=== PATIENT | female | born 1990 | race Caucasian/White ===

== ENCOUNTER 2020-08-04 18:13 | Emergency (ER) | payer OTHER, SELFPAY ==
--- NOTE | ~2020-08-04 | XR_ITS ---
EXAMINATION: XR chest 1V portable DATE: 08/04/2020 19:06 INDICATION: Chest pain TECHNIQUE: frontal view of the chest was obtained. COMPARISON: Chest radiograph dated 11/22/2009 FINDINGS: Subtle patchy airspace opacities in the left mid and bilateral lower lung zones concerning for pneumo neema. No pleural effusion or pneumothorax. The cardiomediastinal silhouette is normal. IMPRESSION: 1. Subtle bilateral airspace disease which is concerning for pneumonia with differential including at electasis. Reviewed, dictated and finalized at location A. IMPRESSION: 1. Subtle bilateral airspace disease which is concerning for pneumonia with dif ferential including atelectasis.
--- NOTE | ~2020-08-04 | CT_ITS ---
EXAMINATION: CTA chest PE protocol DATE: 08/04/2020 20:35 INDICATION: Chest pain. Elevated d-dimer. TECHNIQUE: Computed tomography (CT) pulmonary angiogram of the chest was performed with 100 mL Omnipa que-350 intravenous contrast. Additional 3D reconstructions utilizing coronal maximum intensity proje ction (MIP) were performed. Automated exposure control and iterative reconstruction technique were em ployed. The dose-length product was 1078.47 mGy-cm. COMPARISON: None FINDINGS: Good contrast opacification of the pulmonary arteries. There is mild streak artifact and quantum shen le resulting primarily from patient body habitus. Mild scattered respiratory motion artifact. Togethe r this decreases sensitivity in some of the smaller subsegmental pulmonary arteries. No evident pulmo nary embolism. There are scattered patchy groundglass opacities and small regions of consolidation th roughout both lungs most prominent in the left upper and lower lobes and also seen in portions of the remaining lobes. No septal line thickening to suggest pulmonary edema. No pleural effusion or pneumo thorax. Heart size is normal. No pericardial effusion. Mediastinal lymphadenopathy, the largest a 3.5 x 1.8 cm AP window lymph node. Mild bilateral hilar lymphadenopathy. Diffuse hepatic steatosis with focal sparing along the gallbladder fossa there is also nonspecific mild periportal lymphadenopathy. Mild thoracic spondylosis. IMPRESSION: 1. No evident pulmonary embolism. Sensitivity decreased in the smaller subsegmental pulmonary arterie s due to combination of suboptimal contrast opacification, streak artifact and quantum mottle due to patient body habitus and small amount of respiratory motion. Line 2. Bilateral multifocal pneumonia. 3. Likely reactive bilateral hilar, mediastinal and periportal lymphadenopathy. 4. Diffuse hepatic steatosis. Reviewed, dictated and finalized at location A. IMPRESSION: 1. No evident pulmonary embolism. Sensitivity decreased in the smaller subsegme ntal pulmonary arteries due to combination of suboptimal contrast opacification , streak artifact and quantum mottle due to patient body habitus and small amou nt of respiratory motion. Line 2. Bilateral multifocal pneumonia. 3. Likely reactive bilateral hilar, mediastinal and periportal lymphadenopathy. 4. Diffuse hepatic steatosis.
[2020-08-04 18:31] VITALS: BP 128/81; PULSE 78; RESP 22; TEMP 36.5; O2SAT 98
--- NOTE | 2020-08-04 18:31 | ECG_ITS ---
Measurements Intervals [place] Rate: 76 P: 56 CA: 161 QRS: 8 QRSD: 109 T: 11 QT: 407 QTc: 459 Interpretive Statements SINUS RHYTHM LOW QRS VOLTAGE IN PRECORDIAL LEADS BORDERLINE R WAVE PROGRESSION, ANTERIOR LEADS BASELINE ARTIFACT- III BORDERLINE ECG Electronically Signed On 08-06-2020 7:02:08 CDT by Jose David Johnson D.O.
[2020-08-04 18:35] VITALS: PULSE 76
[2020-08-04] MEDS: KETOROLAC 30 MG/ML VIAL (*BKC) IV PUSH (18:45)
[2020-08-04 18:46] LABS: Basophils Absolute Auto 0.05 K/mm3 (0.00-0.10); Basophils Percent Auto 0.5 % (0.0-1.0); Eosinophils Absolute Auto 0.46 K/mm3 (0.02-0.50); Eosinophils Percent Auto 4.7 % (1.0-6.0); Hematocrit 40.3 % (35.0-49.0); Immature Granulocyte Absolute 0.03 K/mm3 (0.00-0.00); Immature Granulocyte Percent A 0.3 % (0.0-0.0); Lymphocytes Absolute Auto 2.17 K/mm3 (1.10-4.50); Mean Corpuscular HGB Conc 32.3 g/dL (32.0-36.0); Mean Corpuscular Hemoglobin 30.3 pg (27.0-31.0); Mean Corpuscular Volume 93.9 fL (78.0-102.0); Mean Platelet Volume 10.2 fl (9.2-11.8); Monocytes Absolute Auto 0.77 K/mm3 (0.10-0.90); Monocytes Percent Auto 7.8 % (2.0-11.0); Neutrophils Absolute Auto 6.4 K/mm3 (1.7-7.2); Neutrophils Percent Auto 64.7 % (50.0-70.0); Platelet Count Result 332 K/mm3 (150-420); Red Blood Count 4.29 M/mm3 (4.20-5.40); Red Cell Distribution Width 14.4 % (11.6-14.4); White Blood Count 9.9 K/mm3 (4.8-10.8)
[2020-08-04 19:04] LABS: Alanine Aminotransferase 44 U/L (14-59); Albumin Level 3.3 g/dL (3.4-5.0); Alkaline Phosphatase 59 U/L (46-116); Anion Gap 8 mmol/L (8-16); Aspartate Amino Transferase 20 U/L (15-37); Bilirubin,Total 0.4 mg/dL (0.00-1.00); Blood Urea Nitrogen 9 mg/dL (7-18); Calcium 8.7 mg/dL (8.5-10.1); Carbon Dioxide 29 mmol/L (21-32); Chloride 102 mmol/L (98-108); Estimated CRCL calculation 164 ml/min; Estimated Glomerular Filt Rate > 60; Glucose 100 mg/dL (70-99); Osmolality Calculated 286 mOsm/kg (285-295); Potassium 3.6 mmol/L (3.5-5.1); Sodium 139 mmol/L (136-145)
[2020-08-04 19:05] LABS: D Dimer 0.56 mg/L (0.19-0.50); Troponin I < 0.02 ng/mL (0.00-0.056)
[2020-08-04 19:26] LABS: Pregnancy On Board Control POSITIVE; Urine Pregnancy Test Negative
--- NOTE | 2020-08-04 20:59 | ED.CHESTPAIN ---
HPI - Chest Pain General Chief Complaint: Chest Pain Stated Complaint: AMB Source: patient Mode of arrival: ambulatory Limitations: no limitations History of Present Illness HPI narrative: This is a 29-year-old female that presents via EMS to the emergency department with sharp atypical chest pain on left chest area currently no radiation currently that the pain is not associated with some nausea or vomiting currently no shortness of breath patient is afebrile and vital signs are stable with a blood pressure of 128/81. Patient has no significant history of heart disease, no heart disease in her family. MD complaint: chest pain Onset (ago): day(s) Timing of current episode: episodic Prior episodes: No Pain location: left chest Quality: sharp Relieving factors: nothing Exacerbating factors: inspiration Context: recent illness Related Data Home Medications Medication Instructions Recorded Confirmed hydrochlorothiazide 50 mg PO DAILY 08/04/20 08/04/20 labetalol 100 mg PO DAILY 08/04/20 08/04/20 pantoprazole 40 mg PO DAILY 08/04/20 08/04/20 Allergies Allergy/AdvReac Type Severity Reaction Status Date / Time No Known Allergies Allergy Mild Verified 11/22/09 16:02 Review of Systems Review of Systems: All systems reviewed & are unremarkable except as noted in HPI and below PMFSH Past Medical History Medical History HTN (hypertension) Exam Const: General: no acute distress Orientation/consciousness: patient oriented x3 HENMT: Head: normal to inspection Eyes: Conjunctivae: conjunctivae normal Pupils: Equal, round and reactive pupils present EOM: EOMs intact bilaterally Neck: Neck: normal visual inspection, no lymphadenopathy and no meningeal signs Chest: Chest palpation & inspection: normal inspection of the chest and abnormal inspection of the chest Resp: Effort & Inspection: normal respiratory effort Auscultation: clear to auscultation bilaterally Cardio: Rate: regular rate GI: Auscultation: normal bowel sounds : General: Yes no CVA tenderness Neuro: General: patient oriented x3 and moves all extremities Extrem: General: normal to inspection and no pedal edema Psych: Appearance: grossly normal Mental Status: mental status grossly normal Course Course Emergency Course: patient appears to to be comfortable, receive IM 1 g ceftriaxone. Her CURB-65 score is 0 which puts her at low risk. Advised patient to take medicine that sent to her pharmacy and follow-up with primary care physician within 1 week for further evaluation. Vital Signs Vital signs: Vital Signs Temperature 36.5 C 08/04/20 18:31 Pulse Rate 78 08/04/20 18:31 Respiratory Rate 22 H 08/04/20 18:31 Blood Pressure 128/81 08/04/20 18:31 Pulse Oximetry 98 08/04/20 18:31 Temperature 36.5 C 08/04/20 18:31 Pulse Rate 76 08/04/20 18:35 Respiratory Rate 22 H 08/04/20 18:31 Blood Pressure 128/81 08/04/20 18:31 Pulse Oximetry 98 08/04/20 18:31 MDM - Chest Pain Lab Data Result diagrams: 08/04/20 18:43 08/04/20 18:43 Labs: Lab Results 08/04/20 08/04/20 08/04/20 Range/Units 18:43 18:43 18:43 WBC 9.9 (4.8-10.8) K/mm3 RBC 4.29 (4.20-5.40) M/mm3 Hgb 13.0 (12.0-15.0) g/dL Hct 40.3 (35.0-49.0) % MCV 93.9 (78.0-102.0) fL MCH 30.3 (27.0-31.0) pg MCHC 32.3 (32.0-36.0) g/dL RDW 14.4 (11.6-14.4) % Plt Count 332 (150-420) K/mm3 MPV 10.2 (9.2-11.8) fl Immature Gran % (Auto) 0.3 H (0.0-0.0) % Neut % (Auto) 64.7 (50.0-70.0) % Lymph % (Auto) 22.0 (18.0-42.0) % [place] % (Auto) 7.8 (2.0-11.0) % Eos % (Auto) 4.7 (1.0-6.0) % Baso % (Auto) 0.5 (0.0-1.0) % Lymph # (Auto) 2.17 (1.10-4.50) K/mm3 [place] # (Auto) 0.77 (0.10-0.90) K/mm3 Eos # (Auto) 0.46 (0.02-0.50) K/mm3 Baso # (Auto) 0.05 (0.00-0.10) K/mm3 Abs Immat Gran (auto) 0.
[2020-08-04] MEDS: cefTRIAXone 1 GM VIAL IM (21:00)
[2020-08-04] MEDS: LIDOCAINE HCL 1% LOCAL INJ 20 ML VIAL (21:00)
[2020-08-04 21:33] VITALS: BP 142/70; RESP 15; O2SAT 99
== END 2020-08-04 21:33 | disposition home or self-care (01) ==
PROVIDERS: Emergency Provider Emergency Medicine; PCP Family Medicine
DX: J18.9 Pneumonia, unspecified organism (principal)
CPT/HCPCS: 36415; 71045; 71275; 80053; 81025; 84484; 85025; 85380; 93005; 96372; 96374; 99284; J0696; J1885; Q9965

== ENCOUNTER 2021-04-11 11:26 | Outpatient (CLI) | payer OTHER, SELFPAY ==
--- NOTE | ~2021-04-11 | XR_ITS ---
EXAMINATION: XR chest 2V DATE: 04/11/2021 11:59 INDICATION: Hypertension. Preop. TECHNIQUE: Frontal and lateral views of the chest were obtained on 3 radiographs. COMPARISON: Chest CT 08/04/2020 FINDINGS: The chest demonstrates clear lungs without pneumonia, pleural effusion, or pneumothorax. Th e heart size is normal. IMPRESSION: 1. No acute cardiopulmonary disease. Reviewed, dictated and finalized at location A.
[2021-04-11 11:52] LABS: Basophils Absolute Auto 0.05 K/mm3 (0.00-0.10); Basophils Percent Auto 0.7 % (0.0-1.0); Eosinophils Absolute Auto 0.45 K/mm3 (0.02-0.50); Eosinophils Percent Auto 6.2 % (1.0-6.0); Hematocrit 43.8 % (35.0-49.0); Hemoglobin 14.7 g/dL (12.0-15.0); Immature Granulocyte Absolute 0.02 K/mm3 (0.00-0.00); Immature Granulocyte Percent A 0.3 % (0.0-0.0); Lymphocytes Absolute Auto 1.48 K/mm3 (1.10-4.50); Lymphocytes Percent Auto 20.4 % (18.0-42.0); Mean Corpuscular HGB Conc 33.6 g/dL (32.0-36.0); Mean Corpuscular Hemoglobin 31.7 pg (27.0-31.0); Mean Corpuscular Volume 94.4 fL (78.0-102.0); Monocytes Absolute Auto 0.68 K/mm3 (0.10-0.90); Monocytes Percent Auto 9.4 % (2.0-11.0); Neutrophils Absolute Auto 4.6 K/mm3 (1.7-7.2); Platelet Count Result 260 K/mm3 (150-420); Red Blood Count 4.64 M/mm3 (4.20-5.40); Red Cell Distribution Width 14.5 % (11.6-14.4); White Blood Count 7.3 K/mm3 (4.8-10.8)
[2021-04-11 12:02] LABS: Hemoglobin A1C 6.5 % (<5.7)
[2021-04-11 13:05] LABS: Alanine Aminotransferase 83 U/L (14-59); Albumin Level 3.7 g/dL (3.4-5.0); Alkaline Phosphatase 53 U/L (46-116); Anion Gap 8 mmol/L (8-16); Aspartate Amino Transferase 44 U/L (15-37); Bilirubin,Total 0.7 mg/dL (0.00-1.00); Blood Urea Nitrogen 15 mg/dL (7-18); Calcium 9.1 mg/dL (8.5-10.1); Carbon Dioxide 30 mmol/L (21-32); Chloride 100 mmol/L (98-108); Cholesterol 155 mg/dL (0-200); Estimated Glomerular Filt Rate > 60; Ferritin 99 ng/mL (8-252); Folic Acid > 20.0 ng/mL (8.6->20); Glucose 114 mg/dL (70-99); HDL Direct 50 mg/dL (40-60); Iron 72 ug/dL (50-170); LDL Cholesterol Calculated 90 mg/dL (<130); Magnesium 1.6 mg/dL (1.8-2.4); Osmolality Calculated 287 mOsm/kg (285-295); Percent Iron Saturation 21 % (12-57); Potassium 4.1 mmol/L (3.5-5.1); Sodium 138 mmol/L (136-145); Thyroid Stimulating Hormone 1.41 uIU/mL (0.36-3.74); Total Protein 7.8 g/dL (6.4-8.2); Triglycerides 76 mg/dL (0-150); Vitamin B12 1027 pg/mL (193-986)
[2021-04-11 13:34] LABS: Partial Thromboplastin Time 28.8 SEC (23.90-30.70); Prothrombin Time 11.1 Seconds (9.50-12.10)
[2021-04-16 10:39] LABS: Vitamin B1 8 nmol/L (8-30)
[2021-04-16 11:46] LABS: Parathyroid Intact 30 pg/mL (14-64)
[2021-04-16 14:09] LABS: Vitamin D 25 Hydroxy 35 ng/mL (30-100)
== END 2021-04-11 11:27 | disposition home or self-care (01) ==
PROVIDERS: PCP Family Medicine
DX: E66.01 Morbid (severe) obesity due to excess calories (principal); Z01.818 Encounter for other preprocedural examination
CPT/HCPCS: 36415; 71046; 80053; 80061; 82306; 82607; 82728; 82746; 83036; 83540; 83550; 83735; 83970; 84425; 84443; 85025; 85610; 85730

== ENCOUNTER 2021-12-03 08:51 | Outpatient (CLI) | payer OTHER, SELFPAY ==
--- NOTE | 2021-12-09 08:41 | WPDPFTINT ---
PFT Procedure Performed PFT Procedure Performed Spirometry with Pre/Post Bronchodilator Plethysmography (Lung Vol) Diffusing Cap (DLCO) Flow Vol Loop PFT Interpretation DOS: 12/03/2021 REQUESTING: Alan Bianchi PA-C REASON FOR TESTING: Dyspnea on exertion PULMONARY FUNCTION TESTS Results are reliable and reproducible. Spirometry: Pre bronchodilator FEV1 is 85% predicted, 2.56 L, normal. FVC is 82% predicted, normal. FEV1 / FVC is 101% predicted indicating no airflow obstruction. There is no significant change after bronchodilator administration. This is a normal spirometry. Lung volumes: The total lung capacity is 75% predicted which is consistent with mild restriction. Vital capacity is 82% predicted, normal. Residual volume is 61% predicted. RV/TLC is not elevated. There is no air trapping. Airway resistance is normal. Diffusion: DLCO is 69% predicted, mildly reduced. Flow volume loop: Normal. IMPRESSION: This study shows normal spirometry, mild restriction which may be related to body mass index 56, and a mild decrease in diffusion. Diffusion is increased in obesity so this mild decrease is not expected. Isolated decreased in diffusion can be seen in anemia, early interstitial lung disease, pulmonary vascular disease associated with autoimmune conditions, and other etiologies. Clinical correlation is recommended. Martina Chang MD
--- NOTE | 2021-12-09 09:19 | WPDMETH ---
Methacholine Procedure Perform Procedure Performed Methacholine Challenge Methacholine Challenge Methacholine Challenge:
--- NOTE | 2021-12-09 09:22 | WPDMETH ---
Methacholine Procedure Perform Procedure Performed Methacholine Challenge Methacholine Challenge Methacholine Challenge: DOS: 12/03/2021 REQUESTING: Alan Bianchi PA-C REASON FOR TESTING: Dyspnea on exertion METHACHOLINE CHALLENGE This test was conducted per ATS guidelines. A full pulmonary function was performed prior to this study Dec 03, 2021 and this showed showed normal spirometry. The patient was exposed to sequentially increasing doses of methacholine in the usual manner. Baseline - saline Level 1 - 0.025 mg Level 2 - 0.25 mg Level 3 - 1 mg Level 4 - 4 mg Level 5 - 16 mg The test was stopped after the fifth and final dose of 16 mg with a 26% in the FEV1. This is a positive result. Flows returned to normal after bronchodilator was administered. IMPRESSION: This is a positive methacholine challenge with the PD20 16 mg on the 5th level. The best use for a methacholine challenge is to rule out asthma. Clinical correlation is advised. Martina Chang MD
== END 2021-12-03 08:52 | disposition home or self-care (01) ==
LOC: CHSCARD 08:56
PROVIDERS: PCP Family Medicine; Visit Provider Physician Assistant
DX: R06.02 Shortness of breath (principal)
CPT/HCPCS: J7674

== ENCOUNTER 2023-12-29 10:56 | Outpatient (RCR) | payer OTHER, SELFPAY ==
--- NOTE | 2023-12-30 08:33 | BUOTOPEVAL ---
Assessment and note entered by Britt Anderson, OT Evaluation Information Assessment Status Evaluation Diagnosis De Quervain's tenosynovitis, left Onset 07/27/2023 Subjective Information The patient reports she was lifting a box at work and felt a pop and was having really bad pain. She then had surgery last month and now reports 4/10 pain when moving wrist, 6/10 pain at its worst and 0/10 at its best with pain located at base of left thumb. She reports burning sensation distal to incision and feels needles at lateral side of thumb. The patient reports having a difficult time opening jars and bottles, caring for her children, and performing grooming/self feeding to cut food and wash back. Reported Pain Level Pain Score 4: Self Report Assessment OT Clinical Summary The patient is a 33 year old female who was referred to outpatient OT due to surgery for De Quervain's tenosynovitis of L UE. The patient's PMH includes but is not limited to asthma, HTN. 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 The patient requires skilled OT to address these deficits and return to PLOF. Plan of Care Interventions Therapeutic Exercise,Manual Therapy,Neuro Re- education,Therapeutic Activities,Hot Pack/Cold Pack,Electrical Stimulation,Sensory Integrative Techn,Self-Care/Home Management,Ultrasound OT Services Indicated Yes Treatment Frequency and 2x/week for 9 visits. Duration These treatments will address the objective and functional deficits as defined above. The patient will be advanced safely and appropriately in order for the patient to progress towards his/her prior level of function. Additional exercises will be introduced and as well as a comprehensive home exercise program upon discharge, if needed, ?to ensure carryover of functional gains achieved in the clinic. This treatment plan has been reviewed and agreement upon by the patient.
--- NOTE | 2024-02-17 17:12 | BUOTOPEVAL ---
Assessment and note entered by Britt Anderson, OT Evaluation Information Assessment Status Progress Diagnosis De Quervain's tenosynovitis, left Onset 07/27/2023 Subjective Information The patient reports that her biggest issue with wrist is lifting weight and is unable to picker packer her daughter or a gallon of milk. The patient reports that she has a hard time completing daily tasks and does not think she can perform work tasks at this time due to pain. The patient reports that she constantly has pain during any lifting activities even after surgery. Reported Pain Level Pain Score 2: Self Report Pain Score 4: Self Report Pain Score 4: Self Report Pain Score 4: Self Report Pain Score 4: Self Report Pain Score 5: Self Report Pain Score 7: Self Report Pain Score 6: Self Report Pain Score 5: Self Report Pain Score 4: Self Report Additional Pain Score Comments Pain increased to 6/10 with participation in wrist maze. Pain decreases to 3/10 following MHP and STM. Assessment OT Clinical Summary The patient demonstrates minimal progress in goals at this time due to continued pain in affected UE . The patient's pain fluctuates around 2-5/10 pain with pain during daily activities. The patient to continue to address deficits at this time of grip wrapper , wrist mobility and strength, and pain with minimal use of modalities available per mechanical adjuster, therapist to use only approved modalities of massage and heat/ice. Plan of Care Interventions Therapeutic Exercise,Hot Pack/Cold Pack OT Services Indicated Yes Treatment Frequency and 2x/week for 10 visits Duration These treatments will address the objective and functional deficits as defined above. The patient will be advanced safely and appropriately in order for the patient to progress towards his/her prior level of function. Additional exercises will be introduced and as well as a comprehensive home exercise program upon discharge, if needed, ?to ensure carryover of functional gains achieved in the clinic. This treatment plan has been reviewed and agreement upon by the patient.
== END 2024-03-03 20:00 | disposition home or self-care (01) ==
LOC: CHSOT 10:56
DX: M65.4 Radial styloid tenosynovitis [de Quervain] (principal)
CPT/HCPCS: 97110; 97140; 97165; 97530

== ENCOUNTER 2024-05-03 05:54 | Emergency (ER) | payer OTHER, SELFPAY ==
[2024-05-03 05:57] VITALS: BP 153/101; PULSE 100; RESP 20; TEMP 36.2; O2SAT 97
--- NOTE | 2024-05-03 06:06 | ED.FEVER ---
HPI - Fever General Chief Complaint: Unspecified Stated Complaint: upper respiratory Time Seen by Provider: 05/03/24 06:00 Source: patient Mode of arrival: ambulatory Limitations: no limitations History of Present Illness HPI Narrative: This is 33-year-old female presents with a 2 day history of sore throat headache with fever up to 100.5 took Tylenol earlier today, symptoms started 2 days ago with sore throat and headache with no shortness of breath no cough or congestion no abdominal pain no chest pain. MD elicited complaint: fever Onset (ago): day(s) Related Data Home Medications Medication Instructions Recorded Confirmed hydrochlorothiazide 50 mg tablet 50 mg PO DAILY 08/04/20 08/04/20 labetalol 100 mg tablet 100 mg PO DAILY 08/04/20 08/04/20 pantoprazole 40 mg tablet,delayed 40 mg PO DAILY 08/04/20 08/04/20 release budesonide-formoterol HFA 80 2 puff inhalation BID 05/03/24 05/03/24 mcg-4.5 mcg/actuation aerosol inhaler (Symbicort) lisinopril 10 mg tablet 10 mg PO DAILY 05/03/24 05/03/24 norethindrone acetate 1 mg-ethinyl 1 tablet PO DAILY 05/03/24 05/03/24 estradiol 20 mcg tablet (Junel) sumatriptan succinate 100 mg tablet 100 mg PO PRN 05/03/24 05/03/24 venlafaxine 150 mg 150 mg PO DAILY 05/03/24 05/03/24 capsule,extended release 24 hr Allergies Allergy/AdvReac Type Severity Reaction Status Date / Time No Known Allergies Allergy Mild Verified 05/03/24 06:54 Review of Systems Review of Systems: All systems reviewed & are unremarkable except as noted in HPI and below PMFSH Past Medical History Medical History (Updated 05/03/24 @ 06:57 by Zackary Rodriguez MD) HTN (hypertension) Exam Const: General: healthy appearing Nutritional Appearance: well nourished Orientation/consciousness: patient oriented x3 Limitations: no limitations HENMT: Head: normal to inspection Mouth: Yes Abnormal oral and palatal mucosa present Eyes: Conjunctivae: conjunctivae normal Neck: Neck: lymphadenopathy Chest: Chest palpation & inspection: normal inspection of the chest Resp: Effort & Inspection: normal respiratory effort Auscultation: clear to auscultation bilaterally Cardio: Rate: regular rate Rhythm: regular rhythm GI: Auscultation: normal bowel sounds 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 Patient received dose of 800mg PO Motrin. Vital Signs Vital signs: Vital Signs Temperature 36.2 C L 05/03/24 05:57 Pulse Rate 100 05/03/24 05:57 Respiratory Rate 20 05/03/24 05:57 Blood Pressure 153/101 H 05/03/24 05:57 Pulse Oximetry 97 05/03/24 05:57 Oxygen Delivery Room Air 05/03/24 05:57 Temperature 36.2 C L 05/03/24 05:57 Pulse Rate 100 05/03/24 05:57 Respiratory Rate 20 05/03/24 05:57 Blood Pressure 153/101 H 05/03/24 05:57 Pulse Oximetry 97 05/03/24 05:57 Oxygen Delivery Room Air 05/03/24 05:57 Critical Care Time Critical Care Time Critical Care Time: No Discharge Plan Discharge Clinical Impression: Streptococcal sore throat Patient Disposition: Home, Self-Care Condition: Stable Instructions: Antibiotic Form Additional Instructions: take medication as prescribed can use Tylenol or Motrin and follow up with primary within a week for further evaluation. Prescriptions: New amoxicillin-pot clavulanate [Augmentin] 500-125 mg tablet 1 tablet PO TID Qty: 30 0RF No Action hydrochlorothiazide 50 mg tablet 50 mg PO DAILY pantoprazole 40 mg tablet,delayed release (DR/EC) 40 mg PO DAILY labetalol 100 mg tablet 100 mg PO DAILY doxycycline hyclate 100 mg tablet 100 mg PO BID Qty: 20 0RF Follow-up/Referrals: UNKNOWN,DOCTOR [Primary Care Provider] - Time of Disposition: 06:58
[2024-05-03] MEDS: IBUPROFEN 400 MG TABLET 800 MG PO (06:34)
[2024-05-03 06:38] LABS: Strep Group A RT-PCR DETECTED (Negative)
[2024-05-03 06:52] LABS: SARS-CoV-2 RNA PCR Negative (Negative)
[2024-05-03 06:53] LABS: Influenza A QL RT-PCR Negative (Negative); Influenza B QL RT-PCR Negative (Negative); RSV RNA, RT-PCR Negative (Negative)
== END 2024-05-03 07:08 | disposition home or self-care (01) ==
PROVIDERS: Emergency Provider Emergency Medicine
DX: J02.0 Streptococcal pharyngitis (principal); I10 Essential (primary) hypertension; Z79.899 Other long term (current) drug therapy; Z20.822 Contact with and (suspected) exposure to COVID-19
CPT/HCPCS: 87637; 87651; 99283; A9270

== ENCOUNTER 2025-04-13 15:45 | Emergency (ER) | payer OTHER, SELFPAY ==
[2025-04-13] VITALS (7 sets, daily range): BP systolic 109–141; BP diastolic 66–97; PULSE 75–95; RESP 17–20; TEMP 37.4; O2SAT 97–99
--- NOTE | ~2025-04-13 | CT_ITS ---
CT abdomen pelvis w con Ordering provider: Zackary Rodriguez MD History: 34 years Female with . abdominal pain localizing to the right lower quad . Comparison: None. Technique: CT abdomen and pelvis with IV and without oral contrast. Automated exposure control and it erative reconstruction technique were employed. The dose-length product was 1714.10 mGy-cm. 100 ML 35 0 was given IV. Findings: VISUALIZED LOWER CHEST: 9 mm nodule is seen in the right lower lobe laterally. [address] follow-up advised. Soft tissue density is also seen in the left lung base laterally which may be focal atelecta sis versus pneumonia. Nodule is not excluded although this likely an measures 1.2 cm. UPPER ABDOMINAL ORGANS: Liver: Fat infiltration of the liver. Hepatomegaly. Vincent hepatis enlarged lymph nodes are also noted . Gallbladder: Distended with no definite stones. Spleen: Slight splenomegaly. Stomach/duodenum: Normal. Pancreas: Normal. Adrenals: Normal. Kidneys: Normal. PELVIC ORGANS: The bladder is underfilled. BOWEL AND MESENTERY: Colon: No evidence of diverticulitis. Normal appendix. Small Bowel: Normal. No obstruction. Peritoneum/mesentery: No free air or free fluid. Mesenteric lymph nodes are noted with the largest me asures 1.3 cm.. RETROPERITONEUM: Normal aorta. No retroperitoneal lymphadenopathy. Paraortic lymph nodes are seen w ith the largest measuring 2.8, 1.1 and 1.2 cm. MUSCULOSKELETAL: Superficial soft tissues: The superficial soft tissues are normal. Bones: Age appropriate degenerative changes of the spine. IMPRESSION: 1. Hepatosplenomegaly. 2. No evidence of appendicitis, diverticulitis or intestinal obstruction. 3. Nodules in the lung bases. 3 months follow-up CT is advised. 4. Distended gallbladder with no definite stones. Ultrasound evaluation advised. 5. Polyarticular lymphadenopathy. Mesenteric lymphadenopathy. 6. Fat infiltration of the liver. Enlarged vincent hepatis lymph nodes. Reviewed, dictated and finalized at location A. IMPRESSION: 1. Hepatosplenomegaly. 2. No evidence of appendicitis, diverticulitis or intestinal obstruction. 3. Nodules in the lung bases. 3 months follow-up CT is advised. 4. Distended gallbladder with no definite stones. Ultrasound evaluation advise d. 5. Polyarticular lymphadenopathy. Mesenteric lymphadenopathy. 6. Fat infiltration of the liver. Enlarged vincent hepatis lymph nodes.
--- NOTE | 2025-04-13 15:51 | ECG_ITS ---
Test Date: 2025-04-13 16:07:57 Measurements Intervals [place] Rate: 79 P: 41 MS: 160 QRS: 14 QRSD: 105 T: 30 QT: 396 QTc: 455 Interpretive Statements SINUS RHYTHM INCOMPLETE RIGHT BUNDLE BRANCH BLOCK LOW QRS VOLTAGE IN PRECORDIAL LEADS CONSIDER INFERIOR INFARCT, AGE INDETERMINATE BASELINE ARTIFACT- I, II, III, AVR, AVL, AVF ABNORMAL ECG No previous ECG available for comparison Electronically Signed On 04-13-2025 16:29:56 CDT by Jose David Johnson D.O.
--- OUTSIDE RECORDS SUMMARY | 2025-04-13 16:01 | XMS_ITS | Data Portability ---
Author Organization [facility], [address] [facility] ([place]) Address [address] [place] [address] Care Team Providers Care Writer Name Role Phone NENA ALLEN Primary Care Provider [phone] NENA ALLEN Referring Provider [phone] SATINDER EASLEY Pc Maintenance Technician Unavailable Assessment Encounter Date Assessment Date Assessment LastModified by Organization Details LastModified Time 03/03/2024 03/03/2024 The patient is having persistent pain in her left wrist area in the region of the release for de Quervain's tenosynovitis. She is 4 months after her surgical procedure and is still having pain in this area despite the therapy she has received. She should remain off work. She is going to have an MRI of her left wrist. She will be seen back after it is completed. Further treatment recommendations will be made at that time. mgreatting Not available 03/09/2024 06:19:31 04/13/2024 04/13/2024 The patient is having persistent left wrist pain after release of the left wrist 1st dorsal compartment for de Quervain's tenosynovitis. I discussed with her that on my review of the MRI images there did appear to be persistent tenosynovitis around the tendons to the thumb. The 1st dorsal compartment did appear to be completely released. I did not have the final MRI report available at the time of her office visit. She will be contacted with further treatment recommendations once the MRI report is available and reviewed. james [email or web address] Not available 04/17/2024 15:02:58 Plan of Treatment Reminders Order Date Submit Date Provider Last Modified By Organization Details Last Modified Time Details Appointments None record ed. Lab None record ed. Referral None record ed. Procedures None record ed. Surgeries None record ed. Imaging None record ed. Medication Orders None record ed. Patient TargetsNo targets recorded. Patient InstructionsNo instructions recorded. Reason for Referral None Reported. Results Created Date Observation Date Name Description Value Unit Range Abnormal Flag Note LastModifiedBy Organization Detail LastModifiedTime 04/14/20 24 04/13/2024 MRI, wrist , w/o contr ast [address] [address] Teleph one Name: Aura Briceno [id number] am Date: 2023 Age: 33Phys ician: Marycarmen boyce MD, Venkata : 1989Ex aminat ion: MRI WRIST WO CONTRA ST LEFT EXAM: MRI left wrist HISTOR Y: Persis tent pain in the left wrist, 4 months status post releas e for de Querva in's tenosy noviti s. Patien t report s a palpab le knot in the area of previo us surger y. COMPAR TRAVIS: Left wrist radiog raphs 023, MRI 2022 FINDIN GS: Mild thicke lito and edema of the thumb extens or tendon s on axial series 6 image 10, with surrou nding tenosy noviti s. No tear of the tendon s. These findin gs can also be seen on axial T1 series 5 image 9. Thin curvil inear overly ing scarri ng on the same axial T1 image, but withou t any measur able fibrot ic mass, or postop erativ e fluid collec tion in this region . There is mild tenosy noviti s of the extens or carpi radial is tendon s on axial series 6 image 10. The extens or digito rum tendon s at the dorsal wrist on axial series 6 image 10 appear to be constr icted by the extens or retina culum, but withou t associ ated tenosy noviti s or tendin opathy otherw ise. The extens or carpi ulnari s tendon is normal . Somewh at enlarg ed appear ance of the median nerve within the carpal tunnel on axial series 6 image 16 with an increa sed fascic ular patter n, nonspe cific, but can be seen in patien ts with carpal tunnel sympto ms. The flexor tendon s are normal . No fractu re, contus ion, or signif icant arthri tic change s. The cartil age is preser oni. The scapho lunate and lunotr iquetr al ligame nts are intact . The TFCC is intact . Small gangli on cyst along the radial wrist measur ing 4 mm on axial series 6 image 15 and mclean l series 11 image 9, just deep to the radial artery and vein. IMPRES LUIS: 1. Eviden ce for ongoin g de Querva in's tenosy noviti s of the thumb extens ors. Thin overly ing curvil inear scarri ng from the previo us surger y, but withou t any nodula r fibrot ic mass, or overly ing fluid collec tion in this region . 2. Mild tenosy noviti s of the extens or carpi radial is tendon s. 3. The extens or digito rum tendon s appear to be constr icted by the overly ing extens or retina culum at the dorsal wrist, but withou t any associ ated tendin opathy /tenos ynovit is. 4. Somewh at enlarg ed appear ance of the median nerve within the carpal tunnel , with an increa sed fascic ular patter n, a findin g which can be seen in patien ts with carpal tunnel sympto ms occasi onally . 5. Small 4 mm gangli on cyst at the radial wrist, just deep to the radial artery and vein. Electr onical ly signed in [place] cribe by: MAR RUIZ on:04/02 10:16 AM cc: Page PAGE 1 of NUMPAG ES 1 mgreatting Sc Only - [facility] Radiology [address] [place], [address], 04/14/2024 17:42:59 Result Notes None recorded. Problems Name Problem SNOMED Code Status Onset Date Resolution Date Notes Provider Name and Address Organization Details Recorded Time Pain of left wrist [id number] 02 Active 2023 [place], [place] - [facility] 4 16:47:30 Tenosynovit is of left radial styloid 6944713318739 9104 Active 2023 Venkata Quiñones MD [address] [place] [address], [phone], [facility] 4 06:19:40 Problem Notes None recorded. Procedures Surgical History Date Name Laterality Status Provider Name and Address Organization Details Recorded Time delivery completed Not Available Health Note 02/17/2024 12:22:30 Colonoscopy with biopsy completed Not Available Health Note 02/17/2024 12:22:30 Imaging Results None recorded. Procedure Notes None recorded. Medical Equipment None Reported. Medications Name Sig Start Date Stop Date Status Note LastModified by Organization Details LastModified Time cetirizine 10 mg tablet TAKE 1 TABLET BY MOUTH EVERY DAY active Not Available Not Available No t Available azithromycin 250 mg tablet TAKE 2 TABLETS BY MOUTH TODAY, THEN TAKE 1 TABLET DAILY FOR 4 DAYS DIRECTED active Not Available Not Available No t Available ibuprofen 800 mg tablet TAKE 1 TABLET BY MOUTH 3 TIMES DAILY NEEDED FOR PAIN. active Not Available Not Available No t Available sumatriptan 100 mg tablet TAKE 1 (ONE) TABLET AT HEADACHE ONSET, MAY REPEAT IN ONE HOUR ONCE active Not Available Not Available No t Available hydrocodone 5 mg-acetamino phen 325 mg tablet TAKE 1/2-1 TABLET BY MOUTH TWICE A DAY NEEDED FOR SEVERE PAIN TAKE W/ 1 IBUPROFEN active Not Available Not Available No t Available prednisone 20 mg tablet TAKE 1 TABLET BY MOUTH EVERY DAY active Not Available Not Available No t Available venlafaxine ER 150 mg capsule,exte nded release 24 hr TAKE 1 CAPSULE BY MOUTH EVERY DAY active Not Available Not Available No t Available topiramate 25 mg tablet TAKE 1 (ONE) TABLET AT BEDTIME X 2 WEEKS, THEN 2 TABS AT BEDTIME active Not Available Not Available No t Available omeprazole 40 mg capsule,erick yed release TAKE 1 CAPSULE BY MOUTH TWICE A DAY active Not Available Not Available No t Available tramadol 50 mg tablet TAKE 1 TABLET BY MOUTH 3 TIMES A DAY NEEDED FOR SEVERE PAIN (INS MAX 5 DAYS PER FILL) active Not Available Not Available No t Available hydrocodone 7.5 mg-acetamino phen 325 mg tablet TAKE 1/2-1 TABLET BY MOUTH TWICE A DAY NEEDED FOR PAIN (TAKE WITH 1 IBUPROFEN TAB) active Not Available Not Available No t Available fluoxetine 20 mg tablet TAKE 2 TABLETS BY MOUTH EVERY DAY active Not Available Not Available No t Available lisinopril 10 mg tablet TAKE 1 TABLET BY MOUTH EVERY DAY active Not Available Not Available No t Available Advair Diskus 500 mcg-50 mcg/dose powder for inhalation TAKE 1 PUFF BY MOUTH TWICE A DAY active Not Available Not Available Not Available docusate sodium 100 mg capsule TAKE 1 CAPSULE TWICE DAILY NEEDED FOR CONSTIPATIO N active Not Available Not Available No t Available hydrochlorot hiazide 25 mg tablet TAKE 1 (ONE) TABLET DAILY IN THE AM active Not Available Not Available No t Available albuterol sulfate HFA 90 mcg/actuatio n aerosol inhaler INHALE 2 (TWO) PUFF EVERY FOUR HOURS NEEDED FOR COUGH OR WHEEZE active Not Available Not Available No t Available amoxicillin 500 mg-potassium clavulanate 125 mg tablet active Not Available Not Available Not Available 11/21 (21) 1 mg-20 mcg tablet TAKE 1 TABLET BY MOUTH EVERY DAY active Not Available Not Available No t Available Symbicort 80 mcg-4.5 mcg/actuatio n HFA aerosol inhaler INHALE 2 PUFFS BY MOUTH TWICE A DAY active Not Available Not Available No t Available Vitamins Plus Low Iron 27 mg iron-1 mg tablet TAKE 1 TABLET BY MOUTH EVERY DAY active Not Available Not Available No t Available Trulicity 0.75 mg/0.5 mL subcutaneous pen injector USE 1 (ONE) INJECTION UNDER SKIN WEEKLY active Not Available Not Available No t Available Rybelsus 3 mg tablet TAKE 1 TABLET BY MOUTH EVERY DAY active Not Available Not Available No t Available Vitals None Recorded Social History Question Answer Notes LastModified by Organizat ion Details LastModified Time Do You Have An Advance Directive? No [email or web address] Information not available 06/09/2024 What Is Your Level Of Caffeine Consumption? Occasional [email or web address] Information not available 06/09/2024 How Many Times Per Week Do You Exercise? 1-2 Times Per Week [email or web address] Information not available 06/09/2024 Do You Have A Medical Power Of Middle School Music Teacher? No [email or web address] Information not available 06/09/2024 What Was The Date Of Your Most Recent Tobacco Screening? 06/15/2024 [email or web address] Information not available 06/09/2024 What Is Your Relationship Status? [email or web address] Information not available 06/09/2024 Sex: Unknown Functional Status Question Answer Note LastModified by Organizat ion Details LastModified Time Do you use any illicit or recreational drugs? No [email or web address] Information not available 06/09/2024 What is your level of alcohol consumption? None [email or web address] Information not available 06/09/2024 Are you currently employed? 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 Moderate [email or web address] Information not available 06/09/2024 Mental Status None recorded. Family History Relationship Description Onset Age of this Age Resolved Age Notes LastModified by Organization Details LastModified Time Paternal Grandmother Arthritis [email or web address] Not available 01/31 12:22:29 Paternal Grandmother Diabetes mellitus [email or web address] Not available 2023 12:22:29 Paternal Grandmother Kidney disease [email or web address] Not available 2023 12:22:29 Father Family history of malignant neoplasm [email or web address] Not available 2023 12:22:29 Father Hypertensive disorder [email or web address] Not available 2023 02:44:15 Maternal Grandmother Family history of malignant neoplasm [email or web address] Not available 2023 12:22:29 Maternal Grandfather Hypertensive disorder [email or web address] Not available 2023 12:22:29 Medical History Condition Response Diabetes N Anxiety Disorder N Bleeding Disorder N Attention-deficit Hyperactivity Disorder N High Blood Pressure Y Arthritis N Hyperlipidemia N Cancer N Stroke N Thyroid Problems N Asthma Y Depression N COPD N Anemia N Seizures N Heart Disease N Fibromyalgia N Osteoporosis N Kidney Disease N Gynecological HistoryNo gynecological history recorded. Obstetrics History GPAL:G 0 P 0 0 0 0 Past Encounters Encounter ID Performer Location Encounter Start Date Encounter Closed Date Diagnosis/Indication Diagnosis SNOMED-CT Code Diagnosis ICD10 Code Diagnosis Note [id number] Venkata Quiñones MD [address] [facility] ([place]) [address] [place] [phone] 03/03/2024 15:49:43 03/03/2024 18:24:47 Tenosynovitis of left radial styloid [id number] M65.4 [id number] Venkata Quiñones MD [address] [facility] ([place]) [address] [place] [phone] 04/13/2024 16:37:33 04/13/2024 18:29:20 Health Concerns Section Related Observation LastModified by Organization Detai ls LastModified Time None Recorded Concern Status LastModified by Organization Details LastModified Time None Recorded Advance Directives Directive N: Payers Insurance Date Sequence Insurance Name Policy Number Policy Guerra Covered Member ID Guerra Member ID Guarantor Name 03/03/2024 [employer] Claire Briceno 06/20/2024 1 [employer] (HMO) Aura Littlejohn Janak [id number] Aura Littlejohn Tucker 03/23/2024 [employer] Claire Briceno 06/20/2024 [employer] [place] - [place] ON OR AFTER 2020 (MEDICAID REPLACEMENT - HMO) Aura Littlejohn Janak [id number] Aura Briceno 06/20/2024 1 [employer] (MEDICAID REPLACEMENT - HMO) Aura Littlejohn Tucker [id number] Aura Briceno Notes Date Note Type Note Provider Name and Address Organization Details Recorded Time 4 text/html Aura Clark a 33 year oldfemalepresenting for care. The patient returns for follow-up after release left wrist de Quervain's tenosynovitis about 4 months ago. She has received some therapy. She feels she is still having some pain in the area and still has weakness which has not improved a lot with the therapy. She states that her and the therapist both feel that there is a knot in the area of the incision. She has no complaints of numbness and tingling in the left hand. She does not feel she could return to her normal work activities. Venkata Quiñones MD [address] [place] [address], [phone], [facility] 03/09/2024 06:20:00 4 text/html Deepika is seen for follow-up concerning her left wrist. She had previous surgery to the left wrist de Quervain's tenosynovitis. She is having persistent pain on the radial side of her left wrist. She has had no new injury nor trauma. Her symptoms have not really improved significantly with time, as well as with therapy. She has no complaints of numbness and tingling in the left hand. She had an MRI of her left wrist, and she is here today to review the results of that. Venkata Quiñones MD [address] [facility], [place], [phone], [facility] 04/20/2024 05:59:04 OBGyn Episode No OBEpisode recorded.
--- OUTSIDE RECORDS SUMMARY | 2025-04-13 16:02 | XMS_ITS | Clinical Summary ---
Author Organization [facility] Address [address] [place] [address] Care Team Providers Care Wharfmaster Name Role Phone Libertad Rodriguez MD Primary Care Provider Source Comments [facility],non-owned Affiliates and Associated Physician Practices is amultiple site organization consisting of ambulatory clinics and hospital sitesin [place], [place] and [place]. This disclosure is being madepursuant to the Care Everywhere program and may not contain all information available regarding this patient. Last updated 18.[facility] Allergies No known active allergies Medications * Be aware that medications may not be up to date on this document. Alwaysverify current medications with the patient. 27-1 MG TABS Take 1 tablet by mouth once daily 01/17/20 21 Active albuterol HFA (PROVENTIL;VENT NEDRA;PROAIR) 108 (90 Base) MCG/ACT inhaler Inhale 2 puffs by mouth every 4 hours as needed for Shortness of Breath or Wheezing 12/26/19 21 Active CPAP Use as directed Acti ve fluticasone hfa 220 (FLOVENT HFA 220) 220 MCG/ACT inhaler Inhale 2 puffs by mouth every morning Activ e lisinopril (PRINIVIL; ZESTRIL) 10 MG tablet every morning 01/16/20 22 Active ursodiol (ACTIGALL) 300 MG capsuleIndicati ons:Post op laproscopic sleeve gastrectomy Take 1 (one) capsule by mouth 2 times daily Do Not start until 1 week post op. Reasons: Post op laproscopic sleeve gastrectomy 60 capsule 2 01/21/20 Active Probiotic Product (Vocab) capsuleIndicati ons:Bariatric surgery status Take 1 (one) capsule by mouth once daily 30 capsule 3 01/22/20 Active omeprazole (PRILOSEC) 40 MG capsuleIndicati ons:Gastroesoph ageal Reflux Disease Take 1 (one) capsule by mouth daily before breakfast Reasons: Gastroesophageal Reflux Disease 30 capsule 3 01/22/20 Active oxyCODONE, immediate release, (ROXICODONE) 5 MG tabletIndicatio ns:Bariatric surgery status Take 1 to 2 tabs prn every 4 hours for pain. Max of 6 tabs in 24hrs. 12 tablet 01/22/20 Active Additional Information Patient not taking.Reported on 01/23/2022 ondansetron, disintegrating, (ZOFRAN ODT) 4 MG tabletIndicatio ns:Bariatric surgery status Take 1 (one) tablet by mouth every 4 hours as needed for Nausea/Vomiting Allow tablet to dissolve on the tongue 30 tablet 2 01/22/20 Active Additional Information Patient not taking.Reported on 01/23/2022 acetaminophen (TYLENOL) 325 MG tablet Take 325 mg by mouth every 6 hours as needed for Pain Maximum allowable Acetaminophen amount = 4 Grams (4000 mg) / 24 hours. Active Active Problems Problem Noted Date Diagnosed Date Morbid obesity 09/02/2021 Gastroesophageal reflux disease without esophagi tis 08/14/2021 Vitamin D deficiency 08/14/2021 Hypertension 08/14/2021 Magnesium deficiency 08/14/2021 Sleep apnea 08/14/2021 Asthma 08/14/2021 BMI 60.0-69.9, adult 08/14/2021 Class 3 severe obesity due t o excess calories with serious comorbidity and body mass index (BMI) of 60.0 to 69.9 in adult 08/14/2021 Immunizations Immunization Administration Dates Next Due Covid Moderna primary monovalent 12+ yr 0.5mL Family History Medical History Relation Name Comments CVA Father Cancer Father Hypertension Father Migraine Mother Diabetes; unknown type Paternal Grandmother Relation Name Status Comments Father Mother Paternal Grandmother Social History Tobacco Use Types Packs/Day Years Used Date Smoking Tobacco: Never Smokeless Tobacco: Never Alcohol Use Standard Drinks/Week Comments Never 0 (1 standard drink = 0.6 oz pur e alcohol) Comments No Sex and Gender Information Value Date Recorded Sex Assigned at Female 05/29/2021 9:18 AM CDT Legal Sex Female 2:48 PM CDT Gender Identity Female 05/29/2021 9:18 AM CDT Sexual Orientation Straight 05/29/2021 9: 18 AM CDT Last Filed Vital Signs Vital Sign Reading Time Taken Comments Blood Pressure 126/70 01/27/2022 5:00 PM CDT Pulse 60 01/27/2022 5:00 PM CDT Temperature 36.9 C (98.5 F) 01/27/2022 4:05 PM CDT Respiratory Rate 16 01/27/2022 4:05 PM CDT Oxygen Saturation 98% 01/27/2022 4:40 PM CDT Inhaled Oxygen Concentration - - Weight 159.7 kg (352 lb) 02/06/2022 2:00 PM CDT Height 168.3 cm (5' 6.25) 02/06/2022 2:00 PM CD T Body Mass Index 56.39 02/06/2022 2:00 PM CDT Plan of Treatment Health Maintenance Due Date Last Done Comments COLOGUARD (AGES 45-75) - COL ON CA SCREENING 1989 CT COLONOGRAPHY - COLON CA SCREENING 1989 FIT - COLON CA SCREENING 1989 FLEX SIG - COLON CA SCREENING 1989 HIV SCREENING 2004 HEPATITIS C SCREENING 08/17/2007 DTAP/TDAP/TD VACCINES (1 - Tdap) 2008 HEPATITIS B VACCINE (1 of 3 - 19+ 3-dose series) 2008 COVID-19 VACCINE (3 - 2023-2 5 season) 2024 03/13/2021, 02/05/2021 DEPRESSION SCREENING 11/02/2024 INFLUENZA VACCINE (Season Ended) 2025 COLONOSCOPY - COLON CA SCREENING 12/27/2026 12/27/2021 Colorectal Cancer Screening 12/27/2026 COLON MONITORING 12/27/2031 12/27/2021 ZOSTER VACCINE (1 of 2) 2039 HIB VACCINE Aged Out No longer eligi ble based on patient's age to complete this topic HPV VACCINE Aged Out No longer eligi ble based on patient's age to complete this topic MENINGOCOCCAL (Group B) VACCINE SHARED DECISION-MAKING Aged Out No longer eligible based on patient's age to complete this topic MENINGOCOCCAL GROUPS A/C/Y/W VACCINE Aged Out No longer eligible b ased on patient's age to complete this topic PNEUMOCOCCAL VACCINE Aged Out No long er eligible based on patient's age to complete this topic Medical Devices Implanted Type Area P 3 Armament/Ordnance Ima Technician Device Identifier Shelf Expiration Date Model / Serial / Lot Kit Tissue Clsr Duo Tssl 1 Prefl [facility] - [id number] Implanted:Qty : 1 on 09/02/2021 by Yuridia Arthur MD at [facility] [place] N/A: St[employer] 05/01/2023 [id number] / [id number] / [id number] Insurance MEDICAID [employer] [facility] [place] Advance Directives * Full Code (Latest Code Status on File) Date Activated Date Inactivated Comments 09/02/2021 3:51 PM 09/03/2021 12:59 PM Care Teams Wharfmaster Relationship Specialty Start Date End Date Libertad Rodriguez MD PCP - General Family Medicine 03/18/21
--- NOTE | 2025-04-13 16:09 | PC.NURSE ---
Patient back in room from bathroom, Cardiopulmonary at bedside for EKG
[2025-04-13 16:14] LABS: Basophils Absolute Auto 0.03 K/mm3 (0.00-0.10); Basophils Percent Auto 0.2 % (0.0-1.0); Eosinophils Absolute Auto 0.06 K/mm3 (0.02-0.50); Eosinophils Percent Auto 0.4 % (1.0-6.0); Hematocrit 38.8 % (35.0-49.0); Hemoglobin 13.3 g/dL (12.0-15.0); Immature Granulocyte Absolute 0.06 K/mm3 (0.00-0.00); Immature Granulocyte Percent A 0.4 % (0.0-0.0); Lymphocytes Absolute Auto 1.27 K/mm3 (1.10-4.50); Lymphocytes Percent Auto 8.8 % (18.0-42.0); Mean Corpuscular HGB Conc 34.3 g/dL (32-36); Mean Corpuscular Volume 96.3 fL (78.0-102.0); Mean Platelet Volume 10.1 fl (9.2-11.8); Monocytes Absolute Auto 0.86 K/mm3 (0.10-0.90); Monocytes Percent Auto 5.9 % (2.0-11.0); Neutrophils Absolute Auto 12.23 K/mm3 (1.70-7.20); Neutrophils Percent Auto 84.3 % (50.0-70.0); Platelet Count Result 255 K/mm3 (150-420); Red Blood Count 4.03 M/mm3 (4.20-5.40); Red Cell Distribution Width 12.8 % (11.6-14.4); White Blood Count 14.5 K/mm3 (4.8-10.8)
[2025-04-13] MEDS: SODIUM CHLORIDE 0.9% IV 1,000 ML 999 ML IV CONT (16:24)
[2025-04-13 16:25] LABS: Alanine Aminotransferase 51 U/L (6-35); Albumin Level 4.3 g/dL (3.5-5.1); Alkaline Phosphatase 62 U/L (38-126); Anion Gap 5 mmol/L (4-12); Aspartate Amino Transferase 47 U/L (14-36); Bilirubin,Total 0.9 mg/dL (0.2-1.3); Blood Urea Nitrogen 12 mg/dL (7-17); Calcium 8.5 mg/dL (8.4-10.2); Carbon Dioxide 29 mmol/L (22-30); Chloride 105 mmol/L (98-107); Estimated CRCL calculation 148 ml/min; Estimated Glomerular Filt Rate > 60; Glucose 135 mg/dL (65-110); Lactic Acid Reflex 1.5 mmol/L (0.4-2.0); Lipase 59 U/L (23-300); Osmolality Calculated 289 mOsm/kg (285-295); Potassium 3.9 mmol/L (3.4-5.0); Sodium 139 mmol/L (137-145); Total Protein 8.3 g/dL (6.3-8.2)
[2025-04-13] MEDS: KETOROLAC 30 MG/ML VIAL (*BKC) IV PUSH (16:25)
--- OUTSIDE RECORDS SUMMARY | 2025-04-13 16:27 | XMS_ITS | Clinical Summary ---
Author Organization [facility] Address [address] [place] [address] Care Team Providers Care Airconditioning Plant Operator Name Role Phone Libertad Rodriguez MD Primary Care Provider Source Comments [facility],non-owned Affiliates and Associated Physician Practices is amultiple site organization consisting of ambulatory clinics and hospital sitesin [place], [place], [place] and [place]. This disclosure is being madepursuant to the Care Everywhere program and may not contain all information available regarding this patient. Last updated 18.[facility] Allergies No known active allergies Medications * [...] 60 capsule 2 01/21/20 Active Probiotic Product (PhoneTell) capsuleIndicati ons:Bariatric surgery status Take 1 (one) [...] this topic Medical Devices Implanted Type Area Foil Cutter Device Identifier Shelf Expiration Date Model / Serial / Lot Kit Tissue Clsr Duo Tssl 1 Prefl [facility] - [id number] Implanted:Qty : 1 on 09/02/2021 by Yuridia Arthur MD at [facility] N/A: [employer] 05/01/2023 [id number] / [id number] / [id number] Insurance MEDICAID [employer] [facility] [facility] [place] Advance Directives * Full Code (Latest Code Status on File) Date Activated Date Inactivated Comments 09/02/2021 3:51 PM 09/03/2021 12:59 PM Care Teams Airconditioning Plant Operator Relationship Specialty Start Date End Date Libertad Rodriguez MD PCP - General Family Medicine 03/18/21
[2025-04-13 16:28] LABS: Partial Thromboplastin Time 27.3 Sec (23.9-30.70); Prothrombin Time 10.8 Seconds (9.50-12.1)
--- NOTE | 2025-04-13 18:29 | ED.ABDPAIN ---
HPI - Abdominal Pain General Chief Complaint: Urogenital-Female Stated Complaint: bladder Time Seen by Provider: 04/13/25 15:46 Source: patient Mode of arrival: ambulatory Limitations: no limitations History of Present Illness HPI narrative: This is a 34-year-old female that presents with abdominal pain started earlier today suprapubic has an episode of urinary frequency with no dysuria no hematuria no flank pain no fever chills pain is suprapubic but does localize to right lower quadrant pain she rates at a 9/10 with some nausea currently no vomiting no diarrhea or constipation no chest pain or shortness of breath. MD elicited complaint: abdominal pain Onset (ago): hour(s) Pain Consistency: constant Location: RLQ and suprapubic Quality: aching Radiation: RLQ and suprapubic Related Data Home Medications ?Medication ?Instructions ?Recorded ?Confirmed ?Last Taken ?Type hydrochlorothiazide 50 mg tablet 50 mg PO DAILY 08/04/20 05/03/24 Unknown History labetalol 100 mg tablet 100 mg PO DAILY 08/04/20 05/03/24 Unknown History pantoprazole 40 mg tablet,delayed 40 mg PO DAILY 08/04/20 05/03/24 Unknown History release budesonide-formoterol HFA 80 2 puff inhalation BID 05/03/24 05/03/24 Unknown History mcg-4.5 mcg/actuation aerosol inhaler (Symbicort) lisinopril 10 mg tablet 10 mg PO DAILY 05/03/24 05/03/24 Unknown History norethindrone acetate 1 mg-ethinyl 1 tablet PO DAILY 05/03/24 05/03/24 Unknown History estradiol 20 mcg tablet (Junel) sumatriptan succinate 100 mg tablet 100 mg PO PRN 05/03/24 05/03/24 Unknown History venlafaxine 150 mg 150 mg PO DAILY 05/03/24 05/03/24 Unknown History capsule,extended release 24 hr Allergies Allergy/AdvReac Type Severity Reaction Status Date / Time No Known Allergies Allergy Mild Verified 04/13/25 21:01 Review of Systems Review of Systems: All systems reviewed & are unremarkable except as noted in HPI and below PMFSH Past Medical History Medical History (Updated 04/14/25 @ 00:01 by Background Daemon) HTN (hypertension) Exam Const: General: healthy appearing and no acute distress Nutritional Appearance: well nourished and obese Orientation/consciousness: patient oriented x3 Limitations: no limitations Neck: Neck: normal visual inspection, no lymphadenopathy and no meningeal signs Chest: Chest palpation & inspection: normal inspection of the chest Resp: Effort & Inspection: normal respiratory effort Auscultation: clear to auscultation bilaterally Cardio: Rate: regular rate Rhythm: regular rhythm GI: GI Palp: Yes Soft to palpation and Yes Tenderness to palpation present (GI) Auscultation: normal bowel sounds : General: Yes Bladder palpation abnormal and Yes no CVA tenderness Back/Spine/Pelvis: Back: no CVA tenderness Skin: General skin exam: normal color Rashes: no rashes Wounds: no wounds Extrem: General: normal to inspection, no clubbing, cyanosis or edema and no pedal edema Course Vital Signs Vital signs: Vital Signs Temperature 37.4 C 04/13/25 15:46 Pulse Rate 87 04/13/25 15:46 Respiratory Rate 18 04/13/25 15:46 Blood Pressure 141/97 H 04/13/25 15:46 Oxygen Delivery Room Air 04/13/25 15:46 Temperature 37.4 C 04/13/25 15:46 Pulse Rate 81 04/13/25 22:46 Respiratory Rate 20 04/13/25 22:46 Blood Pressure 120/81 04/13/25 22:46 Pulse Oximetry 98 04/13/25 22:46 Oxygen Delivery Room Air 04/13/25 22:46 MDM - Abdominal Pain Lab Data 04/13/25 16:07 04/13/25 16:07 Labs: Lab Results 04/13/25 04/13/25 Range/Units 16:07 18:50 WBC 14.5 H (4.8-10.8) K/mm3 RBC 4.03 L (4.20-5.40) M/mm3 Hgb 13.3 (12.0-15.0) g/dL Hct 38.8 (35.0-49.0) % MCV 96.3 (78.0-102.0) fL MCH 33.0 H (27.0-31.0) pg MCHC 34.3 (32-36) g/dL RDW 12.8 (11.6-14.4) % Plt Count 255 (150-420) K/mm3 MPV 10.1 (9.2-11.8) fl Immature Gran % (Auto) 0.4 H (0.0-0.0) % Neut % (Auto) 84.3 H (50.0-70.0) % Lymph % (Auto) 8.8 L (18.0-42.0) % Sawyer % (Auto) 5.9 (2.0-11.0) % Eos % (Auto) 0.4 L (1.0-6.0) % Baso % (Auto) 0.2 (0.0-1.0) % Lymph # (Auto) 1.27 (1.10-4.50) K/mm3 Sawyer # (Auto) 0.86 (0.10-0.90) K/mm3 Eos # (Auto) 0.06 (0.02-0.50) K/mm3 Baso # (Auto) 0.03 (0.00-0.10) K/mm3 Abs Immat Gran (auto) 0.06 H (0.00-0.00) K/mm3 Absolute Neuts (auto) 12.23 H (1.70-7.20) K/mm3 Absolute Nucleated RBC 0.00 (0.00-0.00) K/mm3 Nucleated RBC % 0.0 (0-0.0) % PT 10.8 (9.50-12.1) Seconds INR 1.0 APTT 27.3 (23.9-30.70) Sec Sodium 139 (137-145) mmol/L Potassium 3.9 (3.4-5.0) mmol/L Chloride 105 (98-107) mmol/L Carbon Dioxide 29 (22-30) mmol/L Anion Gap 5 (4-12) mmol/L BUN 12 (7-17) mg/dL Creatinine 0.75 (0.7-1.0) mg/dL Estim Creat Clear Calc 148 ml/min Estimated GFR > 60 (59 - ) Glucose 135 H (65-110) mg/dL Calculated Osmolality 289 (285-295) mOsm/kg Lactic Acid 1.5 (0.4-2.0) mmol/L Calcium 8.5 (8.4-10.2) mg/dL Total Bilirubin 0.9 (0.2-1.3) mg/dL AST 47 H (14-36) U/L ALT 51 H (6-35) U/L Alkaline Phosphatase 62 (38-126) U/L Total Protein 8.3 H (6.3-8.2) g/dL Albumin 4.3 (3.5-5.1) g/dL Lipase 59 (23-300) U/L Urine Color Light yellow (Yellow) Urine Appearance Clear (Clear) Urine pH 6.0 (5.0-8.0) Ur Specific [place] 1.020 (1.010-1.020) Urine Protein Negative (Negative) Urine Glucose (UA) Negative (Negative) Urine Ketones Negative (Negative) Ur Blood (Man) Negative (Negative) Urine Nitrate Negative (Negative) Urine Bilirubin Negative (Negative) Urine Urobilinogen 1.0 (0.2-1.0) mg/dL Leukocyte Esterase Rfl Negative (Negative) ARMANDO/UL Urine Test Negative Imaging Data Radiologist's impression: ITS Impressions Abdomen/Pelvis CT 04/13/25 20:34 IMPRESSION: 1. Hepatosplenomegaly. 2. No evidence of appendicitis, diverticulitis or intestinal obstruction. 3. Nodules in the lung bases. 3 months follow-up CT is advised. 4. Distended gallbladder with no definite stones. Ultrasound evaluation advised. 5. Polyarticular lymphadenopathy. Mesenteric lymphadenopathy. 6. Fat infiltration of the liver. Enlarged elana hepatis lymph nodes. Discharge Plan Discharge Clinical Impression: Abdominal pain, Gallbladder attack Patient Disposition: Home Condition: Stable Instructions: Antibiotic Form, Biliary Colic (ED), Abdominal Pain (ED) Additional Instructions: advised patient to take medication as prescribed and to follow up with primary within the next 2 to 3 days for further evaluation treatment. Patient Language: Vietnamese Prescriptions: New amoxicillin-pot clavulanate [Augmentin] 500-125 mg tablet 1 tablet PO TID Qty: 30 0RF oxycodone-acetaminophen [Percocet] 5-325 mg tablet 1 tablet PO Q6H PRN (Reason: pain) Qty: 20 0RF ondansetron 4 mg tablet,disintegrating 4 mg PO Q6H PRN (Reason: nausea and vomiting) Qty: 14 0RF No Action hydrochlorothiazide 50 mg tablet 50 mg PO DAILY pantoprazole 40 mg tablet,delayed release (DR/EC) 40 mg PO DAILY labetalol 100 mg tablet 100 mg PO DAILY sumatriptan succinate 100 mg tablet 100 mg PO PRN venlafaxine 150 mg capsule,extended release 24hr 150 mg PO DAILY lisinopril 10 mg tablet 10 mg PO DAILY norethindrone ac-eth estradiol [11/21 (21)] 1-20 mg-mcg tablet 1 tablet PO DAILY budesonide-formoterol [Symbicort] 80-4.5 mcg/actuation HFA aerosol inhaler 2 puff INHALATION BID amoxicillin-pot clavulanate [Augmentin] 500-125 mg tablet 1 tablet PO TID Qty: 30 0RF Follow-up/Referrals: Libertad Rodriguez MD [Primary Care Provider] - Stand Alone Forms: Work/School Release IP Time of Disposition: 21:21
[2025-04-13 18:58] LABS: Add Urine Microscopic? NO; Appearance Urine Clear (Clear); Bilirubin Urine Negative (Negative); Blood Urine Negative (Negative); Color Urine Light Yellow (Yellow); Glucose Urine UA Negative (Negative); Ketones Urine Negative (Negative); Leukocyte Esterase Ur Negative LEU/UL (Negative); Nitrate Urine Negative (Negative); Protein Urine Negative (Negative)
[2025-04-13 19:03] LABS: Pregnancy On Board Control Positive; Urine Pregnancy Test Negative
[2025-04-13] MEDS: MORPHINE SULFATE (*CRX) 2 MG/ML INJ IV PUSH (21:26)
== END 2025-04-13 22:46 | disposition home or self-care (01) ==
PROVIDERS: Emergency Provider Emergency Medicine; PCP Family Medicine
DX: K87 Disorders of gallbladder, biliary tract and pancreas in diseases classified elsewhere (principal); I10 Essential (primary) hypertension
CPT/HCPCS: 36415; 74177; 80053; 81003; 81025; 83605; 83690; 85025; 85610; 85730; 93005; 96361; 96365; 96375; 99284; J0696; J1885; J2270; J7030; Q9967

== ENCOUNTER 2025-10-26 18:06 | Emergency (ER) | payer OTHER, SELFPAY ==
--- NOTE | ~2025-10-26 | XR_ITS ---
XR chest 1V portable 10/26/2025 18:34 INDICATION: Congestion PROCEDURE: AP portable chest COMPARISON: 04/11/2021 FINDINGS: Fracture, dislocation or subluxation is not identified. The soft tissues appear within normal limits. No foreign bodies are identified. IMPRESSION: 1: NO ACUTE BONE OR JOINT ABNORMALITY IDENTIFIED. Reviewed, dictated and finalized at location [facility]. [employer]
[2025-10-26 18:06] VITALS: BP 143/84; PULSE 74; RESP 18; TEMP 35.9; O2SAT 96
[2025-10-26 18:16] VITALS: O2SAT 100
--- NOTE | 2025-10-26 18:17 | ED.GENADULT ---
HPI - General Adult General Chief complaint: Upper Respiratory Infection Stated complaint: cough Time Seen by Provider: 10/26/25 18:06 History of Present Illness HPI narrative: Aura is a 35F with a PMH of HTN that presented to the ED with a cough and congestion for 4 days. She was concerned when her cough moved to her chest and she developed more fatigue and body aches as well as diarrhea No fevers or CP. Related Data Home Medications ?Medication ?Instructions ?Recorded ?Confirmed ?Last Taken ?Type hydrochlorothiazide 50 mg tablet 50 mg PO DAILY 08/04/20 05/03/24 Unknown History labetalol 100 mg tablet 100 mg PO DAILY 08/04/20 05/03/24 Unknown History pantoprazole 40 mg tablet,delayed 40 mg PO DAILY 08/04/20 05/03/24 Unknown History release budesonide-formoterol HFA 80 2 puff inhalation BID 05/03/24 05/03/24 Unknown History mcg-4.5 mcg/actuation aerosol inhaler (Symbicort) lisinopril 10 mg tablet 10 mg PO DAILY 05/03/24 05/03/24 Unknown History norethindrone acetate 1 mg-ethinyl 1 tablet PO DAILY 05/03/24 05/03/24 Unknown History estradiol 20 mcg tablet (Junel) sumatriptan succinate 100 mg tablet 100 mg PO PRN 05/03/24 05/03/24 Unknown History venlafaxine 150 mg 150 mg PO DAILY 05/03/24 05/03/24 Unknown History capsule,extended release 24 hr Allergies Allergy/AdvReac Type Severity Reaction Status Date / Time No Known Allergies Allergy Mild Verified 10/26/25 18:22 Review of Systems Review of Systems: All systems reviewed & are unremarkable except as noted in HPI and below [facility] Past Medical History Medical History (Updated 10/26/25 @ 19:19 by Waldo Frausto DO) HTN (hypertension) Exam Const: General: cooperative, healthy appearing, comfortable, no acute distress, well developed, alert, awake and Physically active Orientation/consciousness: oriented to person, oriented to place and oriented to time HENMT: Head: normal to inspection, normocephalic and atraumatic Ears: hearing grossly normal bilaterally and external ears normal Face/Nose/Sinus: Normal external nose present Eyes: General: appearance normal, both eyes and all related structures Periorbital: periorbital findings normal Sclera: sclerae normal Pupils: Equal, round and reactive pupils present Neck: Neck: normal visual inspection Chest: Chest palpation & inspection: normal inspection of the chest Resp: Effort & Inspection: normal respiratory effort, able to speak in complete sentences and no respiratory distress Auscultation: clear to auscultation bilaterally Cardio: Jugular venous distension: no JVD Rate: regular rate Rhythm: regular rhythm Skin: General skin exam: normal color and no rashes or lesions noted Neuro: General: oriented to person, oriented to place and oriented to time Cranial nerves: Yes Equal, round and reactive pupils present Extrem: General: normal to inspection Course Course Emergency Course: Ordered viral testing and a CXR. Viral testing was negative Vital Signs Vital signs: Vital Signs Temperature 96.7 F L 10/26/25 18:06 Pulse Rate 74 10/26/25 18:06 Respiratory Rate 18 10/26/25 18:06 Blood Pressure 143/84 H 10/26/25 18:06 Pulse Oximetry 96 10/26/25 18:06 Oxygen Delivery Room Air 10/26/25 18:06 Temperature 96.7 F L 10/26/25 18:06 Pulse Rate 74 10/26/25 18:06 Respiratory Rate 18 10/26/25 18:06 Blood Pressure 143/84 H 10/26/25 18:06 Pulse Oximetry 100 10/26/25 18:16 Oxygen Delivery Room Air 10/26/25 18:16 MDM Differential Diagnosis Differential Diagnosis: URI vs bronchitis with pneumonia being less likely Lab Data Labs: Lab Results 10/26/25 Range/Units 18:18 Influenza A (RT-PCR) Negative (Negative) Influenza B (RT-PCR) Negative (Negative) RSV (RT-PCR) Negative (Negative) SARS-CoV-2 RNA (RT-PCR) Negative (Negative) Imaging Data Radiologist's impression: ITS Impressions Chest X-Ray 10/26/25 18:46 IMPRESSION: 1: NO ACUTE BONE OR JOINT ABNORMALITY IDENTIFIED. Discharge Plan Discharge Clinical Impression: URI (upper respiratory infection) Patient Disposition: Home Condition: Stable Instructions: Antibiotic Form Patient Language: Macedonian Prescriptions: New ipratropium bromide 42 mcg (0.06 %) spray,non-aerosol 2 spray intranasal TID Qty: 15 0RF Rx Instructions: administer into each nostril meloxicam 15 mg tablet 15 mg PO DAILY Qty: 10 0RF No Action hydrochlorothiazide 50 mg tablet 50 mg PO DAILY pantoprazole 40 mg tablet,delayed release (DR/EC) 40 mg PO DAILY labetalol 100 mg tablet 100 mg PO DAILY sumatriptan succinate 100 mg tablet 100 mg PO PRN venlafaxine 150 mg capsule,extended release 24hr 150 mg PO DAILY lisinopril 10 mg tablet 10 mg PO DAILY norethindrone ac-eth estradiol [11/21 ()] 1-20 mg-mcg tablet 1 tablet PO DAILY budesonide-formoterol [Symbicort] 80-4.5 mcg/actuation HFA aerosol inhaler 2 puff INHALATION BID amoxicillin-pot clavulanate [Augmentin] 500-125 mg tablet 1 tablet PO TID Qty: 30 0RF amoxicillin-pot clavulanate [Augmentin] 500-125 mg tablet 1 tablet PO TID Qty: 30 0RF oxycodone-acetaminophen [Percocet] 5-325 mg tablet 1 tablet PO Q6H PRN (Reason: pain) Qty: 20 0RF ondansetron 4 mg tablet,disintegrating 4 mg PO Q6H PRN (Reason: nausea and vomiting) Qty: 14 0RF Follow-up/Referrals: Michael,Roya Metcalf MD [Non-Staff, Unknown]
--- NOTE | 2025-10-26 18:20 | PC.NURSE ---
covid swab sent to lab
[2025-10-26 19:10] LABS: Influenza A QL RT-PCR Negative (Negative); Influenza B QL RT-PCR Negative (Negative); SARS-CoV-2 RNA PCR Negative (Negative)
[2025-10-26 19:11] LABS: RSV RNA, RT-PCR Negative (Negative)
== END 2025-10-26 19:24 | disposition home or self-care (01) ==
PROVIDERS: Emergency Provider Family Medicine
DX: J06.9 Acute upper respiratory infection, unspecified (principal); I10 Essential (primary) hypertension; Z20.822 Contact with and (suspected) exposure to COVID-19
CPT/HCPCS: 71045; 87637; 99283